=== PATIENT | male | born 1955 | race Caucasian/White ===

== ENCOUNTER 2020-09-17 10:54 | Outpatient (REF) | payer MEDICARE, SELFPAY ==
[2020-09-17 13:59] LABS: MANUAL DIFF FLAG NO
[2020-09-17 14:01] LABS: Basophils Percent Auto 0.2 % (0-2); Eosinophils Percent Auto 0.1 % (0-4); Hematocrit 46.4 % (42-52); Hemoglobin 15.3 g/dl (14.0-18.0); Imm Gran Abs Auto 0.04 X10*3/uL (0.00-0.03); Imm Gran Pct Auto 0.5 % (0.0-0.4); Lymphocytes Absolute Auto 0.8 X10*3/uL (1.2-4.9); Lymphocytes Percent Auto 10.1 % (20-40); Mean Corpuscular Hemoglobin 30.8 pg (27.0-33.0); Mean Corpuscular Volume 93.5 fL (80-98); Monocytes Absolute Auto 0.3 X10*3/uL (0.1-1.2); Monocytes Percent Auto 4.1 % (2-11); Neutrophils Absolute Auto 7.1 X10*3/uL (2.0-8.3); Platelet Count 302 X10*3/uL (160-400); Red Blood Count 4.96 X10*6/uL (4.60-5.80); White Blood Count 8.3 X10*3/uL (4.8-10.8)
[2020-09-17 14:36] LABS: Alanine Aminotransferase 23 U/L (0-40); Albumin Level 4.2 g/dL (3.5-5.0); Alkaline Phosphatase 73 U/L (39-117); Anion Gap 17 (12-20); Aspartate Amino Transferase 21 U/L (5-37); Blood Urea Nitrogen 13 mg/dL (9-16); C Reactive Protein 0.15 mg/dL (< or = 0.50); Calcium 9.4 mg/dL (8.4-10.2); Carbon Dioxide 20 mmol/L (22-29); Chloride 108 mmol/L (96-108); Estimated Glomerular Filt Rate > 60; Glucose Random 142 mg/dL (60-115); Potassium 4.4 mmol/L (3.3-5.1); Sodium 141 mmol/L (135-145); Total Protein 6.4 g/dL (6.5-8.0)
== END 2020-09-17 10:55 | disposition home or self-care (01) ==
LOC: HO.10HDL 10:54
PROVIDERS: Visit Provider Internal Medicine
DX: R42 Dizziness and giddiness (principal); R11.2 Nausea with vomiting, unspecified; K21.9 Gastro-esophageal reflux disease without esophagitis
CPT/HCPCS: 36415; 80053; 85025; 86140

== ENCOUNTER 2023-05-11 17:27 | Day surgery (SDC) | payer MEDICARE, SELFPAY ==
[2023-05-11 17:36] VITALS: BP 136/88; PULSE 102; RESP 20; TEMP 35.9; O2SAT 100; BMI 25.1
--- NOTE | 2023-05-11 17:39 | ED_ITS ---
HPI - General Adult General Chief complaint: General Medical Stated complaint: something stuck in throat Time Seen by Provider: 05/11/23 18:14 History of Present Illness HPI narrative: The patient is a 67-year-old male who says that he was eating steak this evening when he felt that something got stuck and he could no longer continue to eat. He could no longer swallow he felt. This was at around 5 PM. The patient says that he has had similar but less severe in the episodes in the past. He says he has never had an episode that has been so persistent and he has never had come to the emergency department before. He is not on anticoagulation for any reason. 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 Related Data Home Medications Medication Instructions Recorded Confirmed omeprazole 20 mg capsule,delayed 20 mg PO DAILY 05/11/23 05/11/23 release pentoxifylline 400 mg 400 mg PO BID 05/11/23 05/11/23 tablet,extended release pravastatin 20 mg tablet 20 mg PO DAILY 05/11/23 05/11/23 Allergies Allergy/AdvReac Type Severity Reaction Status Date / Time No Known Allergies Allergy Mild NOT Verified 05/11/23 17:42 APPLICABLE Review of Systems 2 Review of Systems: Yes all other systems are reviewed and are negative PMFSH Past Medical History Onset Date is defined in the Problem List Problems that require an onset date and time if occurred within 24 hrs of arrival to the ED Aortic Dissection and Rupture; Neurologic impairment; Cardiopulmonary Arrest; Endotracheal Intubation; Insertion or Replacement of Mechanical Circulatory Assist Device Medical History (Updated 05/11/23 @ 22:22 by Horace Sheffield MD) High cholesterol GERD (gastroesophageal reflux disease) Surgical History (Updated 05/11/23 @ 19:36 by Eddy Harden RN) Hx of brain surgery Social History Social History Smoked in Last 30 Days: No Use of substances other than those prescribed or required for medical reasons: No Advance Directives: No Advance Directives Information Provided: No Physical Exam ED Vital Signs: Vital Signs - 24 hr 05/11/23 17:36 05/11/23 20:01 05/11/23 20:06 Temperature 96.6 F L 97.2 F Pulse Rate 102 H 77 84 Respiratory Rate 20 15 14 Blood Pressure 136/88 138/79 133/93 H Pulse Oximetry 100 96 95 Oxygen Delivery Method Room Air Room Air Room Air 05/11/23 20:11 05/11/23 20:16 Temperature 98.2 F Pulse Rate 86 81 Respiratory Rate 16 14 Blood Pressure 143/92 H 129/89 Pulse Oximetry 96 96 Oxygen Delivery Method Room Air Room Air BMI result Body Mass Index 25.1 Const Other: The patient is a thin older man who was awake and alert. He looks somewhat chronically ill but not obviously acutely ill. HENMT Other: Oropharynx is clear. Mallampati I a. Eyes Other: Pupils are round equal, conjunctivae are clear Neck Other: No neck swelling. No JVD. Resp Other: No increased work of breathing. No respiratory embarrassment. Lungs are clear bilaterally. Cardio Other: The patient has regular rate and rhythm no murmur. GI Other: Abdomen is soft and nontender. Skin Other: Skin is pale and dry. Neuro Other: The patient is awake, alert, pleasant, cooperative. Face is symmetrical. Speech is clear. Moving all 4 extremities symmetrically. Grossly neurologically intact. Extrem Other: No peripheral edema Course Course Course Narrative: RME performed by Beatriz Meeks PA-C. Patient is a 67 year old assigned male at presenting to the emergency department with a piece of meat stuck in his throat. Patient is unable to drink. Detailed physical exam and review of systems are deferred to the lawn mower. Charge nurse made aware of the patient. Medications Administered Discontinued Medications Generic Name Dose Route Start Last Admin Trade Name Freq PRN Reason Stop Dose Admin Glucagon 1 mg 05/11/23 18:24 05/11/23 18:38 Glucagon Hcl 1 Mg Vial IVPUSH 05/11/23 18:25 1 mg ONCE ONE Administration Medical Decision Making Medical Decision Making [facility] Narrative: The patient is a 67-year-old male whose presentation is consistent with an esophageal food bolus impaction. He was given 1 mg of glucagon which did not seem to offer any benefit. I consulted Dr. Dye of Gastroenterology who took the patient to endoscopy for further management. The patient underwent endoscopy and according to the operative note a fluid bolus was easily pushed into the stomach. I believe the patient was subsequently discharged from the endoscopy recovery room. Lab Data 05/11/23 18:29 05/11/23 18:29 Labs: Lab Results 05/11/23 Range/Units 18:29 WBC 6.3 (4.8-10.8) X10*3/uL RBC 5.22 (4.60-5.80) X10*6/uL Hgb 15.8 (14.0-18.0) g/dl Hct 48.5 (42.0-52.0) % MCV 92.9 (80.0-98.0) fL MCH 30.3 (27.0-33.0) pg MCHC 32.6 (31.0-36.0) g/dl RDW 12.0 (11.0-16.0) % Plt Count 284 (160-400) X10*3/uL MPV 10.9 (9.4-12.4) fL Immature Gran % (Auto) 0.5 H (0.0-0.4) % Neut % (Auto) 71.5 (45-73) % Lymph % (Auto) 17.7 L (20-40) % [place] % (Auto) 7.3 (2-11) % Eos % (Auto) 2.2 (0-4) % Baso % (Auto) 0.8 (0-2) % Lymph # (Auto) 1.1 L (1.2-4.9) X10*3/uL [place] # (Auto) 0.5 (0.1-1.2) X10*3/uL Eos # (Auto) 0.1 (0.0-0.4) X10*3/uL Baso # (Auto) 0.1 (0.0-0.2) X10*3/uL Abs Immat Gran (auto) 0.03 (0.00-0.03) X10*3/uL Absolute Neuts (auto) 4.5 (2.0-8.3) x10*3/uL Absolute Nucleated RBC 0.000 (0.0-0.012) X10*3/uL Nucleated RBC % (auto) 0.0 (0.0-0.2) /100WBC Sodium 143 (135-145) mmol/L Potassium 4.2 (3.3-5.1) mmol/L Chloride 107 (96-108) mmol/L Carbon Dioxide 26 (22-29) mmol/L Anion Gap 14 (12-20) BUN 19 H (9-16) mg/dL Creatinine 1.27 (0.5-1.4) mg/dL Estim Creat Clear Calc 59.2 Estimated GFR 56 Random Glucose 103 (60-115) mg/dL Calcium 9.5 (8.4-10.2) mg/dL Discharge Plan Discharge Clinical Impression: Food impaction of esophagus Patient Disposition: Home, Self-Care Prescriptions: No Action omeprazole 20 mg capsule,delayed release(DR/EC) 20 mg PO DAILY pentoxifylline 400 mg tablet extended release 400 mg PO BID pravastatin 20 mg tablet 20 mg PO DAILY Patient Comments: pt states has not taken if over a week. Pt did not give a particular reason for non compliance Referrals: Odell Quinteros MD [Primary Care Provider] -
[2023-05-11] MEDS: glucagon HCL 1 MG VIAL IVPUSH (18:38)
[2023-05-11 18:41] LABS: MANUAL DIFF FLAG NO
[2023-05-11 18:44] LABS: Basophils Absolute Auto 0.1 X10*3/uL (0.0-0.2); Basophils Percent Auto 0.8 % (0-2); Eosinophils Absolute Auto 0.1 X10*3/uL (0.0-0.4); Eosinophils Percent Auto 2.2 % (0-4); Hematocrit 48.5 % (42.0-52.0); Hemoglobin 15.8 g/dl (14.0-18.0); Imm Gran Abs Auto 0.03 X10*3/uL (0.00-0.03); Imm Gran Pct Auto 0.5 % (0.0-0.4); Lymphocytes Absolute Auto 1.1 X10*3/uL (1.2-4.9); Lymphocytes Percent Auto 17.7 % (20-40); Mean Corpuscular HGB Conc 32.6 g/dl (31.0-36.0); Mean Corpuscular Hemoglobin 30.3 pg (27.0-33.0); Mean Corpuscular Volume 92.9 fL (80.0-98.0); Mean Platelet Volume 10.9 fL (9.4-12.4); Monocytes Absolute Auto 0.5 X10*3/uL (0.1-1.2); Monocytes Percent Auto 7.3 % (2-11); Neutrophils Absolute Auto 4.5 x10*3/uL (2.0-8.3); Neutrophils Percent Auto 71.5 % (45-73); Platelet Count 284 X10*3/uL (160-400); Red Blood Count 5.22 X10*6/uL (4.60-5.80); White Blood Count 6.3 X10*3/uL (4.8-10.8)
--- NOTE | 2023-05-11 18:45 | PC.NURSE ---
patient a&ox3, vss, pt speaking in full sentences, pt states he got a piece of ribeye steak stuck in his throat, IV inserted, labs drawn, pt medicated per order, at bedside, provider to consult GI, will continue to monitor
[2023-05-11 18:58] LABS: Anion Gap 14 (12-20); Blood Urea Nitrogen 19 mg/dL (9-16); Calcium 9.5 mg/dL (8.4-10.2); Carbon Dioxide 26 mmol/L (22-29); Chloride 107 mmol/L (96-108); Creatinine Clr Calc Pharmacy 59.2; Estimated Glomerular Filt Rate 56; Glucose Random 103 mg/dL (60-115); Potassium 4.2 mmol/L (3.3-5.1); Sodium 143 mmol/L (135-145)
--- NOTE | 2023-05-11 19:13 | PC.NURSE ---
Report given to OR
--- NOTE | 2023-05-11 19:15 | PM.EVENT ---
Event Note Date of Service: 05/11/23 Event Note: GI Consult-Full note dictated. History via patient and ER staff. Imp: Acute esophageal obstruction refractory to IV Glucagon. Rec: EGD this evening. Full consent obtained for this, including risks of bleeding and perforation. D/W patient and in detail. They are comfortable with this plan. Thanks. Time Spent With Patient Time: Total time managing care of this patient today ____ minutes.
--- NOTE | 2023-05-11 19:18 | PC.NURSE ---
Pt is undressed, in only a gown, as per request from OR.
--- NOTE | 2023-05-11 19:19 | MHC.SHP ---
Pre-Procedural Eval Section A Date of Service: 05/11/23 The patient is an INPATIENT: No The History & Physical has been completed within 30 days and I have reviewed it.: Yes Section B Chief Complaint: something stuck in throat Allergies: Allergies Allergy/AdvReac Type Severity Reaction Status Date / Time No Known Allergies Allergy Mild NOT Verified 05/11/23 17:42 APPLICABLE Plan I have reviewed the history and physical and performed a pertinent physical examination on my patient. No changes have occurred unless specified. Time Spent With Patient Time: Total time managing care of this patient today ____ minutes.
--- NOTE | 2023-05-11 19:20 | PM.EVENT ---
Event Note Date of Service: 05/17/23 Time Spent With Patient Time: Total time managing care of this patient today ____ minutes.
--- NOTE | 2023-05-11 19:29 | HO.ANESPROP2 ---
HPI - Anesthesia Eval Consult details Narrative: Food bolus [facility] Past Medical History Medical History (Updated 05/11/23 @ 19:38 by Eddy Harden RN) High cholesterol GERD (gastroesophageal reflux disease) Family History Family history of problems with anesthesia: No Surgical History Surgical History (Updated 05/11/23 @ 19:36 by Eddy Harden RN) Hx of brain surgery History of Problems with Anesthesia: No Social History Social History Smoked in Last 30 Days: No Use of substances other than those prescribed or required for medical reasons: No Advance Directives: No Advance Directives Information Provided: No Meds Allergies Allergy/AdvReac Type Severity Reaction Status Date / Time No Known Allergies Allergy Mild NOT Verified 05/11/23 17:42 APPLICABLE Home Medications Medication Instructions Recorded Confirmed Last Taken Type omeprazole 20 mg capsule,delayed 20 mg PO DAILY 05/11/23 05/11/23 05/11/23 History release pentoxifylline 400 mg 400 mg PO BID 05/11/23 05/11/23 05/11/23 History tablet,extended release pravastatin 20 mg tablet 20 mg PO DAILY 05/11/23 05/11/23 Unknown History Exam Height,Weight and Vital Signs: Height 5 ft 11 in Weight 81.647 kg Last Vital Signs Temp 96.6 F L 05/11/23 17:36 Pulse 102 H 05/11/23 17:36 Resp 20 05/11/23 17:36 BP 136/88 05/11/23 17:36 Pulse Ox 100 05/11/23 17:36 O2 Del Method Room Air 05/11/23 17:36 Pertinent Lab Results Pertinent Lab Results: Laboratory Tests 05/11/23 18:29 WBC 6.3 RBC 5.22 Hgb 15.8 Hct 48.5 MCV 92.9 MCH 30.3 MCHC 32.6 RDW 12.0 Plt Count 284 MPV 10.9 Immature Gran % (Auto) 0.5 H Neut % (Auto) 71.5 Lymph % (Auto) 17.7 L [place] % (Auto) 7.3 Eos % (Auto) 2.2 Baso % (Auto) 0.8 Lymph # (Auto) 1.1 L [place] # (Auto) 0.5 Eos # (Auto) 0.1 Baso # (Auto) 0.1 Abs Immat Gran (auto) 0.03 Absolute Neuts (auto) 4.5 Absolute Nucleated RBC 0.000 Nucleated RBC % (auto) 0.0 Sodium 143 Potassium 4.2 Chloride 107 Carbon Dioxide 26 Anion Gap 14 BUN 19 H Creatinine 1.27 Estim Creat Clear Calc 59.2 Estimated GFR 56 Random Glucose 103 Calcium 9.5 Airway Mallampati Class: II TM Dist: >3cm Neck ROM: Full Adult Head Mouth w/[place] Teeth: 1. Loose/Missing/Broken Teeth: Yes and Upper (B = Broken inciser) Heart: rrr Lungs: cta Assessment and Plan Assessment Anesthesia Assessment: Anesthesia Plan Discussed and Chart Reviewed Final Anesthetic Review Family History of Problems with Anesthesia: No History of Problems with Anesthesia: No NPO: No ASA Class: II and Emergency Final Preanesthetic Review: No Changes in Pt Med Stat, Meds/Allgs Chart Reviewed, Consent Obtained/Reviewed and Anes Risks/Benef Reviewed Patient Risk: Low Procedure Risk: Low Anesthetic Plan Anesthetic Plan: TIVA Disposition: Standard PACU
[2023-05-11 20:01] VITALS: BP 138/79; PULSE 77; RESP 15; TEMP 36.2; O2SAT 96
--- NOTE | 2023-05-11 20:05 | PM.EVENT ---
Event Note Date of Service: 05/17/23 Time Spent With Patient Time: Total time managing care of this patient today ____ minutes.
[2023-05-11 20:06] VITALS: BP 133/93; PULSE 84; RESP 14; O2SAT 95
--- NOTE | 2023-05-11 20:06 | P.BOP_ITS ---
Brief Operative Note Date of Service: 05/11/23 Pre-op diagnosis: Esophageal obstruction Post-op diagnosis: other (Esophageal food bolus) Procedure: Upper endoscopy with removal of esophageal food bolus Surgeon: Dennis Dye MD Anesthesia: MAC Was an Curriculum Specialist used for this Procedure?: No Estimated blood loss (mL): 0 Pathology: none sent Condition: stable Disposition: PACU
--- NOTE | 2023-05-11 20:07 | PM.EVENT ---
Event Note Date of Service: 05/11/23 Event Note: GI-Upper Endoscopy-Full note dictated Findings: 1. Food bolus in very proximal esophagus-pushed easily into stomach. EG Junction at 38cm WNL. 2. No abnormality in the proximal esophagus 3. Small hiatal hernia 4. Stomach and duodenum not inspected due to significant amount of food in stomach Plan. Continue oral PPI. Eat carefully. D/W patient and . Time Spent With Patient Time: Total time managing care of this patient today ____ minutes.
[2023-05-11 20:11] VITALS: BP 143/92; PULSE 86; RESP 16; O2SAT 96
[2023-05-11 20:16] VITALS: BP 129/89; PULSE 81; RESP 14; TEMP 36.8; O2SAT 96
--- NOTE | 2023-05-11 20:38 | OP_ITS ---
DATE OF SERVICE: 05/11/2023 SURGEON: Dennis Dye MD INDICATIONS: The patient presents for evaluation of acute dysphagia. Full consent has been obtained from the patient for this, including risks of bleeding and perforation. PREOPERATIVE DIAGNOSIS: Acute dysphagia. POSTOPERATIVE DIAGNOSIS: PROCEDURE PERFORMED: Upper endoscopy with removal of esophageal food bolus. ESTIMATED BLOOD LOSS: COMPLICATIONS: ANESTHESIA: Monitored anesthesia care. ASSISTANTS: SPECIMENS: POSTOPERATIVE DIAGNOSES: Acute dysphagia, esophageal food bolus, hiatal hernia. DESCRIPTION OF PROCEDURE: The patient was placed in the left lateral decubitus position. The Olympus video gastroscope was passed in the posterior oropharynx and upper esophagus under direct vision. Immediately upon entering the esophagus, there was a food bolus that was seen. This was then easily pushed into the stomach. The gastroesophageal junction appeared normal at 38 cm. There was a large amount of food in the stomach, and therefore, the stomach nor duodenum was inspected. The small hiatal hernia mucosa appeared normal. The gastroesophageal junction was widely patent and without any sign of esophagitis. There was no stricture. The scope was then withdrawn through the esophagus. I did not visualize any sign of residual food. The proximal esophagus was normal and without any sign of mucosal abnormality. The upper esophageal sphincter was easily passed as well. The scope was withdrawn from the patient. He tolerated the procedure well and was returned to the recovery area in stable condition. IMPRESSION: 1. Esophageal food bolus. 2. Hiatal hernia. PLAN: I suspect willy's episode was probably in relation to that of a too large of a piece of food. He also does not make much in the way of saliva due to his previous head and neck cancer, and this may have been playing a role in it as well. He has been instructed to eat carefully, cut up his food carefully, and to drink liquids with his meals. He will continue his omeprazole as he has been on for years in relation to reflux. If things remain stable, I do not think we would need any further intervention with repeat endoscopy nor GI series. However, if the problem develops again, then we may need to proceed with further studies including a GI series with a barium tablet and/or esophageal motility studies. This has been discussed with his . MD SHU SmithW/RUPINDERL / [id number] [facility]
--- NOTE | 2023-05-12 01:53 | CONS_ITS ---
DATE OF SERVICE: 05/11/2023 REASON FOR CONSULTATION: Acute dysphagia and esophageal obstruction. HISTORY OF PRESENT ILLNESS: The patient is a 67-year-old male who was in his usual state of health up until eating dinner this evening, which consisted of steak. Early in the meal, he developed an esophageal obstruction, in which he was unable to swallow any liquids nor any other food. He does describe that this has happened occasionally in the past, but usually within a couple of minutes he will be able to bring up the food and then continue eating. However, this evening he was unable to clear the obstruction and came to the ER. In the ER, he was given a dose of IV glucagon, but his dysphagia persists, and he has been unable to tolerate even water. He does have a history of a head and neck cancer for which he was treated with surgery and radiation treatments, and therefore does not make much saliva. He denies any chest pain nor trouble breathing. He does have a history of reflux for which he takes omeprazole, but again has not had any significant dysphagia in his past. He does describe that I performed an upper endoscopy on him over 5 years ago. MEDICATIONS: At home, omeprazole. PAST MEDICAL HISTORY: Left salivary gland cancer, treated with surgery and radiation treatments. Gastroesophageal reflux. He denies any history of heart disease, diabetes, stroke, nor lung disease. He has had eye surgery, laceration on his scalp as a child, and the above-mentioned head and neck cancer. SOCIAL HISTORY: He is . He does not smoke. He has a distant history of alcohol use but has not drank in over 20 years. FAMILY HISTORY: Noncontributory. REVIEW OF SYSTEMS: CONSTITUTIONAL: He had been feeling well and in his usual state of health up until this acute problem tonight. SKIN: Without rash nor jaundice. CARDIAC: No chest pain. PULMONARY: No cough or hemoptysis. GI: As above. URINARY: No dysuria, no hematuria. NEUROLOGIC: No headache or seizures. PHYSICAL EXAMINATION: GENERAL: The patient is a pleasant, alert, comfortable-appearing female. SKIN: Warm and dry. NECK: Supple without lymphadenopathy no crepitus. CHEST: Clear bilaterally. There is no chest wall crepitus. CARDIAC: Normal S1, S2. ABDOMEN: Soft, nondistended, nontender. EXTREMITIES: Without edema. IMPRESSION: The patient presents with acute esophageal obstruction that has been refractory to medical therapy. As such, he will undergo upper endoscopy this evening with monitored anesthesia care. Full consent has been obtained from the patient and his for this, including risks of bleeding and perforation. Given his clinical history, this may represent simply too large a food bolus to have swallowed adequately. Other possibilities, given his history of reflux, would be that of an underlying esophageal stricture or ring. Thank you for the consultation. MD ROBLES Smith/JAI / [id number] MTDD
--- NOTE | 2023-05-12 08:35 | MHC.CM.PN ---
Patient d/c'd home before being seen by case management.
== END 2023-05-11 20:20 | disposition home or self-care (01) ==
LOC: HO.ED 05-12 07:29 → HO.SSS 05-12 07:45
PROVIDERS: Emergency Provider Emergency Medicine; PCP Internal Medicine; Visit Provider Internal Medicine
PROC: 0DJ08ZZ Inspection of Upper Intestinal Tract, Via Natural or Artificial Opening Endoscopic (ICD-10-PCS; CPT 43235; principal; 2023-05-11 07:45)
DX: T18.120A Food in esophagus causing compression of trachea, initial encounter (principal); R13.10 Dysphagia, unspecified; W44.F3XA Food entering into or through a natural orifice, initial encounter; Y93.89 Activity, other specified; Y92.9 Unspecified place or not applicable; Y99.9 Unspecified external cause status; K11.7 Disturbances of salivary secretion; Z85.21 Personal history of malignant neoplasm of larynx; K44.9 Diaphragmatic hernia without obstruction or gangrene; K21.9 Gastro-esophageal reflux disease without esophagitis; E78.00 Pure hypercholesterolemia, unspecified; Z79.899 Other long term (current) drug therapy; Z87.820 Personal history of traumatic brain injury; Z98.890 Other specified postprocedural states
CPT/HCPCS: 43247; 36415; 80048; 85025; 96374; 99284; 99285; J1610; J2704; J3010; Q9967

== ENCOUNTER 2023-10-16 08:05 | Day surgery (SDC) | payer MEDICARE, SELFPAY ==
[2023-10-13 15:09] VITALS: BMI 22.8
--- NOTE | 2023-10-14 11:59 | HO.ANESPROP2 ---
Documented by User: Gracie Camacho NP 10/14/23 12:01 HPI - Anesthesia Eval Consult details Narrative: 68yo M for Upper Endoscopy and Colonoscopy s/p food bolus EGD 05/2023 with TIVA PMFSH Active Problems Active Problems: All Active Problems Food impaction of esophagus (Acute) Past Medical History Medical History (Updated 10/13/23 @ 15:12 by Esther Perez, GALEN) Squamous cell carcinoma of tonsil Barretts esophagus High cholesterol GERD (gastroesophageal reflux disease) Family History Family history of problems with anesthesia: No Surgical History Surgical History (Updated 10/16/23 @ 08:14 by Lore Delgado RN) Hx of eye surgery Hx of tonsillectomy History of esophagogastroduodenoscopy (EGD) H/O colonoscopy Hx of brain surgery History of Problems with Anesthesia: No Social History Social History (Updated 10/13/23 @ 15:12 by Esther Perez RN) Household Members: Spouse Patient Tobacco Use Status: Never used Tobacco Use of substances other than those prescribed or required for medical reasons: No Are you DNR?: No Advance Directives: No Advance Directives Information Provided: Yes Meds Allergies Allergy/AdvReac Type Severity Reaction Status Date / Time No Known Allergies Allergy Mild NOT Verified 05/11/23 17:42 APPLICABLE Home Medications ?Medication ?Instructions ?Recorded ?Confirmed ?Last Taken ?Type omeprazole 20 mg capsule,delayed 20 mg PO DAILY 05/11/23 10/13/23 10/16/23 History release pravastatin 20 mg tablet 20 mg PO DAILY 05/11/23 10/13/23 Unknown History Exam Height,Weight and Vital Signs: Height 5 ft 11.5 in Weight 75.296 kg Pertinent Lab Results Pertinent Lab Results: Laboratory Tests 05/11/23 18:29 WBC 6.3 Hgb 15.8 Hct 48.5 Plt Count 284 Sodium 143 Potassium 4.2 Chloride 107 Carbon Dioxide 26 BUN 19 H Creatinine 1.27 Assessment and Plan Assessment Anesthesia Assessment: Chart Reviewed Final Anesthetic Review Family History of Problems with Anesthesia: No History of Problems with Anesthesia: No Documented by User: Portia Alexis MD 10/16/23 09:05 PMFSH Past Medical History Medical History (Updated 10/13/23 @ 15:12 by Esther Perez, GALEN) Squamous cell carcinoma of tonsil Barretts esophagus High cholesterol GERD (gastroesophageal reflux disease) Surgical History Surgical History (Updated 10/16/23 @ 08:14 by Lore Delgado RN) Hx of eye surgery Hx of tonsillectomy History of esophagogastroduodenoscopy (EGD) H/O colonoscopy Hx of brain surgery Social History Social History (Updated 10/13/23 @ 15:12 by Esther Perez RN) Household Members: Spouse Patient Tobacco Use Status: Never used Tobacco Use of substances other than those prescribed or required for medical reasons: No Are you DNR?: No Advance Directives: No Advance Directives Information Provided: Yes Meds Allergies Allergy/AdvReac Type Severity Reaction Status Date / Time No Known Allergies Allergy Mild NOT Verified 05/11/23 17:42 APPLICABLE Home Medications ?Medication ?Instructions ?Recorded ?Confirmed ?Last Taken ?Type omeprazole 20 mg capsule,delayed 20 mg PO DAILY 05/11/23 10/13/23 10/16/23 History release pravastatin 20 mg tablet 20 mg PO DAILY 05/11/23 10/13/23 Unknown History Exam Airway Mallampati Class: III TM Dist: >3cm Neck ROM: Full Assessment and Plan Assessment Anesthesia Assessment: Anesthesia Plan Discussed Final Anesthetic Review NPO: Yes ASA Class: II Final Preanesthetic Review: No Changes in Pt Med Stat, Meds/Allgs Chart Reviewed, Consent Obtained/Reviewed and Anes Risks/Benef Reviewed Patient Risk: Low Procedure Risk: Low Anesthetic Plan Anesthetic Plan: TIVA Disposition: Standard PACU
[2023-10-16 08:17] VITALS: BMI 22.5
[2023-10-16 08:20] VITALS: BP 137/93; PULSE 82; RESP 16; TEMP 36.5; O2SAT 96
[2023-10-16] MEDS: Lactated Ringers 1,000 ML 100 ML IVCONT (08:29)
[2023-10-16 09:46] VITALS: BP 92/57; PULSE 80; RESP 16; TEMP 36.2; O2SAT 97
--- NOTE | 2023-10-16 09:49 | PM.OP ---
Brief Operative Note Date of Service: 10/16/23 Pre-op diagnosis: Luong's, Screening Post-op diagnosis: other (Hiatal hernia, Diverticulosis) Procedure: EGD with biopsies, Colonoscopy to the cecum and TI Surgeon: Dennis Dye MD Anesthesia: MAC Was an Attendant Coin Operated Laundry used for this Procedure?: No Estimated blood loss (mL): 2.0 Pathology: other (A. EG Junction at 39cm) Condition: stable Disposition: PACU
[2023-10-16 10:01] VITALS: BP 110/68; PULSE 87; RESP 16; O2SAT 97
[2023-10-16 10:16] VITALS: BP 118/69; PULSE 80; RESP 16; TEMP 36.2; O2SAT 97
--- NOTE | 2023-10-16 10:19 | OP_ITS ---
DATE OF SERVICE: 10/16/2023 SURGEON: Dennis Dye MD INDICATIONS: The patient presents for evaluation of personal history of tubular adenoma of the colon, family history of colon cancer, need for colorectal cancer screening, gastroesophageal reflux, and Luong esophagus. Full consent has been obtained from him for both procedures, including risks of bleeding and perforation. PREOPERATIVE DIAGNOSIS: POSTOPERATIVE DIAGNOSIS: PROCEDURE PERFORMED: Esophagogastroduodenoscopy with biopsies, and colonoscopy to the cecum and terminal ileum. ESTIMATED BLOOD LOSS: COMPLICATIONS: ANESTHESIA: Monitored anesthesia care. ASSISTANTS: SPECIMENS: PREOPERATIVE DIAGNOSES: Gastroesophageal reflux, history of Luong esophagus, family history of colon cancer, personal history of tubular adenoma, colorectal cancer screening. POSTOPERATIVE DIAGNOSES: Gastroesophageal reflux, history of Ulong esophagus, family history of colon cancer, personal history of tubular adenoma, colorectal cancer screening, hiatal hernia, gastric polyps, diverticulosis, internal hemorrhoids. DESCRIPTION OF PROCEDURE: The patient was placed in the left lateral decubitus position. The Olympus video gastroscope was passed in the posterior oropharynx and upper esophagus under direct vision. The scope was passed slowly into the distal esophagus. The gastroesophageal junction appeared at 39 cm. There was some very slight areas of irregularity, but no erosions, ulceration, nor lesions. The scope entered the stomach. There was a small hiatal hernia. The scope was advanced to pylorus and the duodenum was cannulated to the descending portion. The duodenum including the bulb appeared normal without mass or ulceration. The scope was withdrawn back in the stomach. The gastric antrum and body appeared normal with good peristalsis. The scope was retroflexed, visualizing the proximal stomach carefully, which appeared normal, without mass or ulceration, other than some hyperplastic-appearing gastric polyps. The scope was straightened and withdrawn back to the esophagus. Multiple biopsies were obtained at the EG junction at 39 cm. Proximal to this, the esophageal mucosa appeared normal. The scope was withdrawn from the patient. He was turned around for the colonoscopy. The digital rectal exam revealed no abnormalities. The Olympus video pediatric colonoscope was then entered into the rectum and advanced easily to the cecum. Once in the cecum, I did identify normal-appearing cecal pouch with appendiceal orifice and a normal-appearing ileocecal valve. The terminal ileum was cannulated and appeared normal. The scope was withdrawn back in the colon. The entire cecum and ileocecal valve appeared normal. The scope was slowly withdrawn assessing all mucosal surfaces carefully. Preparation was excellent. I did not visualize any sign of polyps, colitis, or angiodysplasias. There was a mild amount of sigmoid diverticulosis. In the rectum, scope was retroflexed, visualizing internal hemorrhoids, but no other pathology. The rectal mucosa appeared normal. The scope was straightened and withdrawn from the patient. He tolerated the procedures well and was returned to the recovery area in stable condition. IMPRESSION: 1. Hiatal hernia, history of Luong esophagus. 2. Gastric polyps. 3. Diverticulosis. 4. Internal hemorrhoids. PLAN: The results of the biopsies will be checked. Assuming there is no dysplasia within the Luong mucosa, I would recommend a repeat upper endoscopy and colonoscopy in 5 years. He will continue his daily omeprazole. He will, otherwise, see me on a p.r.n. basis. MD ROBLES Smith/JAI / [phone]
== END 2023-10-16 10:40 | disposition home or self-care (01) ==
PROVIDERS: PCP Internal Medicine; Visit Provider Internal Medicine
PROC: (CPT 43239; principal; 2023-10-16 09:30)
DX: Z12.11 Encounter for screening for malignant neoplasm of colon (principal); K57.30 Diverticulosis of large intestine without perforation or abscess without bleeding; K64.8 Other hemorrhoids; Z86.010 Personal history of colon polyps; Z80.0 Family history of malignant neoplasm of digestive organs; K21.9 Gastro-esophageal reflux disease without esophagitis; K31.7 Polyp of stomach and duodenum; K44.9 Diaphragmatic hernia without obstruction or gangrene; Z87.19 Personal history of other diseases of the digestive system; Z79.899 Other long term (current) drug therapy
CPT/HCPCS: 43239; G0105; 88305; 88313; J1596; J2704

== ENCOUNTER 2024-09-21 09:02 | Outpatient (AMB) | payer MEDICARE, SELFPAY ==
--- NOTE | 2024-09-13 15:19 | MHC.PC.OV ---
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 Accompanied by: Self / Same As Patient Allergies No Known Allergies Allergy (Mild, Verified 09/13/24 15:20) NOT APPLICABLE Tobacco use date assessed: 09/14/24 Fall risk assessment: No Falls in past year Last assessed Fall Risk: 09/14/24 Dental Screening Dental Screen Date: 09/13/24 Did you have a dental visit in the last 12 months?: Yes Did you have a dental problem in the last 6 months where you did not have access to dental care?: No PFSH Medical History Squamous cell carcinoma of tonsil Barretts esophagus High cholesterol GERD (gastroesophageal reflux disease) Surgical History Hx of eye surgery Hx of tonsillectomy History of esophagogastroduodenoscopy (EGD) H/O colonoscopy Hx of brain surgery Social History Household Members: Spouse Patient Tobacco Use Status: Never used Tobacco Questionnaire PHQ-9 Over the last 2 weeks, how often have you been bothered by any of the following problems? 1. Little interest or pleasure in doing things: not at all 2. Feeling down, depressed, or hopeless: not at all 3. Trouble falling or staying asleep, or sleeping too much: not at all 4. Feeling tired or having little energy: not at all 5. Poor appetite or overeating: not at all 6. Feeling bad about yourself - or that you are a failure or have let yourself or your family down: not at all 7. Trouble concentrating on things, such as reading the newspaper or watching television: not at all 8. Moving or speaking so slowly that other people could have noticed. Or the opposite - being so fidgety or restless that you have been moving around a lot more than usual: not at all 9. Thoughts that you would be better off or of hurting yourself in some way: not at all Total score: 0 Source: Developed by Drs. Dennis Jonas, Lisette Jones, Ion Barroso and colleagues, with an educational savi from [employer]. Thrive Questionnaire Date Thrive assessed: 09/14/24 I am a: Patient Within the past 12 months, did the food you bought not last and you didn't have the money to get more?: Never true Within the past 12 months, did you worry whether your food would run out before you got money to buy more?: Never true Do you have trouble paying for medicines?: No Do you have trouble getting transportation to medical appointments?: No Do you have trouble paying your heating and electricity bill?: No Do you have trouble taking care of your child, family member or friend?: No Do you have trouble with day-to-day activities such as bathing, preparing meals, shopping, managing finances, etc.?: No Are you currently unemployed and looking for a job?: No Are you interested in more education?: No THRIVE Score: 0 AUDIT C Alcohol Use Questionnaire (AUDIT-C) 1. How often do you have a drink containing alcohol?: Never 3. How often do you have six or more drinks on one occasion?: Never Total Score: 0 DAYLIN-7 AMB Questionnaire DAYLIN-7 Date DAYLIN - 7 assessed: 09/14/24 Feeling nervous, anxious, or on edge: 0 = Not at all Not being able to stop or control worryin = Not at all Worrying too much about different things: 0 = Not at all Trouble relaxin = Not at all Being so restless that it is hard to sit still: 0 = Not at all Becoming easily annoyed or irritable: 0 = Not at all Feeling afraid as if something awful might happen: 0 = Not at all Total DAYLIN-7 score (0-4 normal; 5-9 mild; 10-14 moderate; 15-21 severe): 0 Source: Developed by Drs. Dennis Jonas, Lisette Jones, Ion Barroso and colleagues, with an educational savi from [employer]. Physical exam (Primary Care) Tobacco/Smoking Status: Tobacco use Status Patient Tobacco Use Status Never used Tobacco 10/16/23 09:49 Coding
--- NOTE | 2024-09-21 07:48 | MHC.PC.OV ---
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 Accompanied by: Self / Same As Patient Allergies No Known Allergies Allergy (Mild, Verified 09/21/24 09:29) NOT APPLICABLE Medication List - Last Reconciled 09/21/24 by Ignacio Burnett MD omeprazole 20 mg PO DAILY pravastatin 20 mg PO DAILY Tobacco use date assessed: 09/21/24 Fall risk assessment: 2 + Falls in past year Last assessed Fall Risk: 09/21/24 Dental Screening Dental Screen Date: 09/21/24 Did you have a dental visit in the last 12 months?: Yes Did you have a dental problem in the last 6 months where you did not have access to dental care?: No PFSH Medical History Squamous cell carcinoma of tonsil Barretts esophagus High cholesterol GERD (gastroesophageal reflux disease) Surgical History Hx of eye surgery Hx of tonsillectomy History of esophagogastroduodenoscopy (EGD) H/O colonoscopy (~10/16/23) Hx of brain surgery Family History Mother No problems noted. Father No problems noted. Social History Household Members: Spouse Housing: House Patient Tobacco Use Status: Never used Tobacco e-Cigarette/Vaping Use: Never Used service: No Current occupational status: employed and retired Current occupational exposures/hazards: No Cognitive needs: No Hearing needs: No Vision needs: Yes (rx glasses) Female Reproductive History Date of last Bone Density Screenin09/21/24 Questionnaire PHQ-9 Over the last 2 weeks, how often have you been bothered by any of the following problems? 1. Little interest or pleasure in doing things: not at all 2. Feeling down, depressed, or hopeless: not at all 3. Trouble falling or staying asleep, or sleeping too much: not at all 4. Feeling tired or having little energy: not at all 5. Poor appetite or overeating: not at all 6. Feeling bad about yourself - or that you are a failure or have let yourself or your family down: not at all 7. Trouble concentrating on things, such as reading the newspaper or watching television: not at all 8. Moving or speaking so slowly that other people could have noticed. Or the opposite - being so fidgety or restless that you have been moving around a lot more than usual: not at all 9. Thoughts that you would be better off or of hurting yourself in some way: not at all Total score: 0 Depression Screening Interpretation: Negative Depression Screening Done: Yes Source: Developed by Drs. Dennis Jonas, Lisette Jones, Ion Barroso and colleagues, with an educational savi from [employer]. Thrive Questionnaire Date Thrive assessed: 09/21/24 I am a: Patient Within the past 12 months, did the food you bought not last and you didn't have the money to get more?: Never true Within the past 12 months, did you worry whether your food would run out before you got money to buy more?: Never true Do you have trouble paying for medicines?: No Do you have trouble getting transportation to medical appointments?: No Do you have trouble paying your heating and electricity bill?: No Do you have trouble taking care of your child, family member or friend?: No Do you have trouble with day-to-day activities such as bathing, preparing meals, shopping, managing finances, etc.?: No Are you currently unemployed and looking for a job?: No Are you interested in more education?: No Currently or been in a relationship where the following occur: No concerns reported THRIVE Score: 0 AUDIT C Alcohol Use Questionnaire (AUDIT-C) 1. How often do you have a drink containing alcohol?: Never 3. How often do you have six or more drinks on one occasion?: Never Total Score: 0 DAYLIN-7 AMB Questionnaire DAYLIN-7 Date DAYLIN - 7 assessed: 09/21/24 Feeling nervous, anxious, or on edge: 0 = Not at all Not being able to stop or control worryin = Not at all Worrying too much about different things: 0 = Not at all Trouble relaxin = Not at all Being so restless that it is hard to sit still: 0 = Not at all Becoming easily annoyed or irritable: 0 = Not at all Feeling afraid as if something awful might happen: 0 = Not at all Total DAYLIN-7 score (0-4 normal; 5-9 mild; 10-14 moderate; 15-21 severe): 0 Source: Developed by Drs. Dennis Jonas, Lisette Jones, Ion Barroso and colleagues, with an educational savi from [employer]. Physical exam (Primary Care) Vital Signs: Last Vital Signs Temp 98.1 F 09/21/24 09:15 Pulse 80 09/21/24 09:15 BP 122/80 09/21/24 09:15 Pulse Ox 98 09/21/24 09:15 Oxygen Delivery Method Room Air 09/21/24 09:15 Care Plan Goal for BP management: BP is in range BMI result Body Mass Index 24.0 Tobacco/Smoking Status: Tobacco use Status Tobacco use date assessed 09/21/24 09/21/24 07:50 Patient Tobacco Use Status Never used Tobacco 09/21/24 07:50 e-Cigarette/Vaping Use Never Used 09/21/24 07:50 PHQ-9: PHQ-9 Score PHQ-9: Total score 0 09/21/24 09:19 Depression Screening Interpretation: Negative Thrive Assessment: Date of Thrive Assessment Date Thrive assessed 09/21/24 09/21/24 09:10 Currently or been in a relationship where the following occur: No concerns reported Advance Care Planning discussion: Exists, not on file Date of discussion: 09/21/24 Who was present: Patient Forms completed: Health Care Proxy Time spent: 1-15 minutes, not on file Actual minutes spent: 5 Coding Level of Care Code New Pt Level 4 (15362) Complex EM visit Add On G2211 Diagnoses High cholesterol E78.00 Squamous cell carcinoma of tonsil C09.9 Additional Codes Vital Signs *Quality* - Advance Care Planning discussion: Exists, not on file ([id number]) Vital Signs *Quality* - Time spent: 1-15 minutes, not on file ([id number]) Assessment & Plan Assessment & Plan (1) High cholesterol: Code(s): E78.00 - Pure hypercholesterolemia, unspecified Category: Medical Plan: Fasting lipid panel ordered. Will adjust medication accordingly. 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 Plan History of Present Illness The patient is a 69-year-old male presenting for a medication refill and fasting blood work. He is currently managing hypercholesterolemia, which has necessitated the use of cholesterol-lowering medication. His usual pharmacy contacted him about a problem with the refill, potentially linked to an update in his healthcare provider. In addition, the patient's history includes the removal of squamous cell carcinoma. He had undergone surgical excision, and it has been a decade since any follow-up with an oncologist. Post-surgery effects include a persistent drift on his lower lip, attributed to nerve impact during the procedure. The patient denied any recurrence or new symptoms related to his past oncology issues. Social History - Retired, previously worked in [employer] for the [employer] - Never smoked - Previously consumed alcohol heavily in youth - Enjoys playing golf as a current hobby - and drives, both in the day and night - Discussed having arrangements for a living will or healthcare proxy Review of Systems - Constitutional: Denies weight changes, fatigue - Dermatological: Denies new skin lesions - Cardiovascular: Reports stable cardiovascular status - Gastrointestinal: Reports previous history of omeprazole use - Musculoskeletal: Denies joint pain, swelling - Neurological: Reports surgical effects on lower lip with drift due to nerve involvement Physical Exam General: Cooperative and healthy appearing Nutritional Appearance: Well nourished Orientation/consciousness: Patient oriented x3 Limitations: No limitations Head: Normal to inspection General: Appearance normal, both eyes and all related structures Neck: Normal visual inspection Chest: Normal palpation of entire chest wall Respiratory: N ormal respiratory effort Neurology: Patient oriented x3, residual drift on lower lip due to nerve damage from surgery Results - Labs: Pending fasting blood work Plan 1. Hypercholesterolemia - Cholesterol medication refill will be processed. - Complete fasting blood work today. - Follow-up scheduled for six months. 2. History Of Squamous Cell Carcinoma - No current concerns; monitoring only. - No evidence of recurrence, remains stable. Discussion Notes During our visit, we discussed the patient's need for a medication refill and blood work for managing his hypercholesterolemia. I explained the importance of maintaining consistent medication use to control his cholesterol levels and the necessity of regular monitoring through blood tests. I confirmed the plan to communicate with [facility] regarding his prescription refill issue, ensuring the process is streamlined due to the recent provider transition. We also reviewed his past history of squamous cell carcinoma, for which he has not seen an oncologist in ten years, indicating a stable condition. The residual effects on his lower lip post-surgery were noted, and his non-recurrent status provided reassurance that no immediate follow-up with oncology was necessary. We agreed on follow-up in six months to reassess and monitor his health status. Patient Instructions - Proceed to complete fasting blood work today, despite having consumed a banana. 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 - Follow up with a healthcare provider in six months for reassessment. - Maintain current lifestyle and report any new health changes or concerns. Orders: Orders Basic Metabolic Panel Today C09.9 - Malignant neoplasm of tonsil, unspecified, E78.00 - Pure hypercholesterolemia, unspecified Complete Blood Count no Diff Today C09.9 - Malignant neoplasm of tonsil, unspecified, E78.00 - Pure hypercholesterolemia, unspecified Liver Panel Today C09.9 - Malignant neoplasm of tonsil, unspecified, E78.00 - Pure hypercholesterolemia, unspecified Lipid Panel Today C09.9 - Malignant neoplasm of tonsil, unspecified, E78.00 - Pure hypercholesterolemia, unspecified Thyroid Stimulating Hormone Today C09.9 - Malignant neoplasm of tonsil, unspecified, E78.00 - Pure hypercholesterolemia, unspecified UA and rflx microscopic Today C09.9 - Malignant neoplasm of tonsil, unspecified, E78.00 - Pure hypercholesterolemia, unspecified Medications: New omeprazole 20 mg PO DAILY 90 caps 1RF pravastatin 20 mg PO DAILY 90 tabs 1RF
[2024-09-21 09:15] VITALS: BP 122/80; PULSE 80; TEMP 36.7; O2SAT 98; BMI 24.0
--- OUTSIDE RECORDS SUMMARY | 2024-09-21 10:17 | XMS_ITS ---
Author Organization [facility] Address [address] [place] [id number] Care Team Providers Care Overlock Sleeve Setter Name Role Phone Odell Quinteros MD Primary Care Provider Dennis Segovia Unavailable [phone] Allergies No Known Allergies REASON FOR VISIT Patient presents today for a colon screening Medications Medication SIG (Take, Route, Frequency, Duration) Notes Start Date End Date Status Omeprazole 20 MG 1 capsule Orally Once a day 07/18 Active Pravastatin Sodium 20 MG 1 tablet Orally Once a day 07/18/2014 Active Problems Problem Type SNOMED Code ICD Code Onset Dates Problem Status W/U Status Risk Notes Problem History of adenomatous polyp of colon (429719300) History of adenomatous polyp of colon (Z86.010) Active confirmed Vital Signs Temperature 98.4 degrees Fahrenheit 09/11/19 24 Blood pressure systolic 000 mm Hg 09/11/19 24 Blood pressure diastolic 00 mm Hg 024 Height 71.5 in 09/11/2023 Weight 166 lbs 09/11/2023 BMI 22.83 kg/m2 09/11/2023 Encounters Encounter Location Date Provider Diagnosis [facility] [address] [place] [id number] 09/11/2023 Dennis Dye Gastroesophageal ref lux disease without esophagitis K21.9 ; Barretts esophagus without dysplasia K22.70 ; Encounter for screening for malignant neoplasm of colon Z12.11 ; Family history of colon cancer Z80.0 and History of adenomatous polyp of colon Z86.010 Assessments Encounter Date Diagnosis (ICD Code) Assessment Notes Treatment Notes Treatment Clinical Notes Section Notes 09/11/2023 Gastroesophageal reflux disease without esophagitis (ICD-10 - K21.9) Overall, Jatinder appears to be doing well. We did review his recent esophageal obstruction and subsequent endoscopy. I did advise him to continue to eat carefully, cut up his food carefully, and be sure to drink plenty of fluids with his meals to make up for his lack of saliva I don't think he repeat upper endoscopy is required in regard to the previous esophageal obstruction given his clinical history and his current clinical course and not having any further problems. However, I did recommend a followup upper endoscopy in regard to the previous history of Luong's esophagus and his last upper endoscopy with biopsies being over 5 years ago. I also recommended a followup colonoscopy for further screening purposes given the history of tubular adenomas removed just over 5 years ago. He did review the rationale for that in regard to colon cancer prevention and/or early detection. Full consent was obtained from him for both procedures, including risks of bleeding and perforation. Procedures will be done monitored anesthesia care Jatinder was comfortable with this plan. Thank you again for allowing me to participate in Jatinder's care. I shall continue to keep you advised of his progress. 09/11/2023 Barretts esophagus without dysplasia (ICD-10 - K22.70) Overall, Jatinder appears to be doing well. We did review his recent esophageal obstruction and subsequent endoscopy. I did advise him to continue to eat carefully, cut up his food carefully, and be sure to drink plenty of fluids with his meals to make up for his lack of saliva I don't think he repeat upper endoscopy is required in regard to the previous esophageal obstruction given his clinical history and his current clinical course and not having any further problems. However, I did recommend a followup upper endoscopy in regard to the previous history of Luong's esophagus and his last upper endoscopy with biopsies being over 5 years ago. I also recommended a followup colonoscopy for further screening purposes given the history of tubular adenomas removed just over 5 years ago. He did review the rationale for that in regard to colon cancer prevention and/or early detection. Full consent was obtained from him for both procedures, including risks of bleeding and perforation. Procedures will be done monitored anesthesia care Jatinder was comfortable with this plan. Thank you again for allowing me to participate in Jatinder's care. I shall continue to keep you advised of his progress. 09/11/2023 Encounter for screening for malignant neoplasm of colon (ICD-10 - Z12.11) Overall, Jatinder appears to be doing well. We did review his recent esophageal obstruction and subsequent endoscopy. I did advise him to continue to eat carefully, cut up his food carefully, and be sure to drink plenty of fluids with his meals to make up for his lack of saliva I don't think he repeat upper endoscopy is required in regard to the previous esophageal obstruction given his clinical history and his current clinical course and not having any further problems. However, I did recommend a followup upper endoscopy in regard to the previous history of Luong's esophagus and his last upper endoscopy with biopsies being over 5 years ago. I also recommended a followup colonoscopy for further screening purposes given the history of tubular adenomas removed just over 5 years ago. He did review the rationale for that in regard to colon cancer prevention and/or early detection. Full consent was obtained from him for both procedures, including risks of bleeding and perforation. Procedures will be done monitored anesthesia care Jatinder was comfortable with this plan. Thank you again for allowing me to participate in Jatinder's care. I shall continue to keep you advised of his progress. 09/11/2023 Family history of colon cancer (ICD-10 - Z80.0) Overall, Jatinder appears to be doing well. We did review his recent esophageal obstruction and subsequent endoscopy. I did advise him to continue to eat carefully, cut up his food carefully, and be sure to drink plenty of fluids with his meals to make up for his lack of saliva I don't think he repeat upper endoscopy is required in regard to the previous esophageal obstruction given his clinical history and his current clinical course and not having any further problems. However, I did recommend a followup upper endoscopy in regard to the previous history of Luong's esophagus and his last upper endoscopy with biopsies being over 5 years ago. I also recommended a followup colonoscopy for further screening purposes given the history of tubular adenomas removed just over 5 years ago. He did review the rationale for that in regard to colon cancer prevention and/or early detection. Full consent was obtained from him for both procedures, including risks of bleeding and perforation. Procedures will be done monitored anesthesia care Jatinder was comfortable with this plan. Thank you again for allowing me to participate in Jatinder's care. I shall continue to keep you advised of his progress. 09/11/2023 History of adenomatous polyp of colon (ICD-10 - Z86.010) Overall, Jatinder appears to be doing well. We did review his recent esophageal obstruction and subsequent endoscopy. I did advise him to continue to eat carefully, cut up his food carefully, and be sure to drink plenty of fluids with his meals to make up for his lack of saliva I don't think he repeat upper endoscopy is required in regard to the previous esophageal obstruction given his clinical history and his current clinical course and not having any further problems. However, I did recommend a followup upper endoscopy in regard to the previous history of Luong's esophagus and his last upper endoscopy with biopsies being over 5 years ago. I also recommended a followup colonoscopy for further screening purposes given the history of tubular adenomas removed just over 5 years ago. He did review the rationale for that in regard to colon cancer prevention and/or early detection. Full consent was obtained from him for both procedures, including risks of bleeding and perforation. Procedures will be done monitored anesthesia care Jatinder was comfortable with this plan. Thank you again for allowing me to participate in Jatinder's care. I shall continue to keep you advised of his progress. Plan Of Treatment Medication Medication Name Sig Start Date Stop Date Notes Omeprazole 20 MG 1 capsule Orally Once a day 07/18/2014 Future Test Test Name Order Date UPPER GI ENDOSCOPY 09/11/2023 COLONOSCOPY 09/11/2023 Next Appt Details Follow Up: prn, Reason: Progress Notes * JATINDER RODRIGUEZ FDOB:1955 (68 yo M)Acc No.[id number]:09/11/2023 Progress Notes Patient:?JATINDER RODRIGUEZ Provider:?Dennis Dye MD :1955???Age:68 Y???Sex:Male Kun e:09/11/2023 Address: [address], [facility] Pcp:Odell Quinteros MD Subjective: * Chief Complaints: * ???Patient presents today fo r a colon screening * HPI: ???incontinence:? I saw Jatinder in followup today in regard to his history of chronic gastroesophageal associated Luong's esophagus, personal history of tubular adenomas of the colon and need for colorectal cancer screening, and recent esophageal obstruction. ?I last saw Jatinder in May, at which time he was in the ER with esophageal obstruction from a piece of meat. He underwent upper endoscopy with me with removal of that. There was no evidence of any intrinsic esophageal disease such as a stricture, ring, nor esophagitis. At that time I felt this was in relation to a too large a piece of food coupled with his lack of any saliva from his previous head and neck cancer treatments. Since that happened to him he has been doing well and without any further episodes. He is trying to be more conscious of Eating slowly, cutting up his food, and drinking liquids with his meals. ?He does remain on daily omeprazole with good relief of reflux symptoms. His last upper endoscopy in 2019 did not reveal any esophagitis or Luong's esophagus, although previous endoscopies with biopsies have revealed some Luong's mucosa. He denies any significant heartburn, dysphagia, anorexia, nausea, nor vomiting. ?He denies any abdominal pain, jaundice, nor weight loss. ?His bowel movements have been regular and without any signs of bleeding. His colonoscopy in 2019 revealed 2 tubular adenomas that were removed. He thinks his father probably had colon cancer. * ROS:?General/Constitutional:?Change in appetite?denies.?Chills?denies.?Fatigue?denies.?Ophthalmologic:?Comments?all negative.?ENT:?Comments?all negative.?Respiratory:?hemoptysis?denies.?Cough?denies.?Cardiovascular:?Chest pain?denies.?Orthopnea?denies.?Gastrointestinal:?Comments?See HPI for details.?Genitourinary:?Hematuria?denies.?Dysuria?denies.?Musculoskeletal:?Painful joints?denies.?Weakness?denies.?Skin:?Itching?denies.?Rash?denies.?Neurologic:?Headache?denies.?Seizures?denies.?Psychiatric:?Comments?all negative.? * Medical History:? * Surgical History:?Neck cance r as above 2008Skull surgery due to trauma 1960Eye surgery as a child * Hospitalization/Major Diagno stic Procedure:?No Hospitalization History. * Family History:?Father: dece ased, dx in his late 60, diagnosed with Colon cancer.?Mother: .? No family history of liver cancer. * Social History:?Tobacco Use:?Tobacco Use/Smoking?Are you a: nonsmoker.?Drugs/Alcohol:?Alcohol Screen?Points: 0, Interpretation: Negative.?Miscellaneous:?Marital status: . Occupation: Golf pro in [place].. ???Nonsmoker; heavy EtOH until 1999--abstinent since. * Medications:?TakingPravastat in Sodium 20 MG Tablet 1 tablet Orally Once a dayOmeprazole 20 MG Capsule Delayed Release 1 capsule Orally Once a dayMedication List reviewed and reconciled with the patientTaking Pravastatin Sodium 20 MG Tablet 1 tablet Orally Once a dayTaking Omeprazole 20 MG Capsule Delayed Release 1 capsule Orally Once a dayMedication List reviewed and reconciled with the patient * Allergies:?N.K.D.A.yes[Aller gies Verified] Objective: * Vitals:?Wt: 166 lbs, Ht: 71. 5 in, BMI:22.83 Index, BP: 000/00 mm Hg, Temp: 98.4. * Examination: ???General Examination: ?GENERAL APPEARANCE:?pleasant, well nourished, well developed, in no acute distress.?EYES:?sclera non-icteric.?ORAL CAVITY:?mucosa moist.?NECK/THYROID:?no cervical lymphadenopathy, neck supple.?SKIN:?nonjaundiced, no spider angiomata.?HEART:?S1, S2 normal.?LUNGS:?clear to auscultation bilaterally.?ABDOMEN:?normal bowel sounds, no guarding or rigidity, no guarding or rigidity, no masses palpable, soft, nontender, nondistended.?EXTREMITIES:?no edema.?NEUROLOGIC:?alert and oriented.? Assessment: * Assessment: 1.?Barretts esophagus withou t dysplasia - K22.70 (Primary)?2.?Gastroesophageal reflux disease without esophagitis - K21.9?3.?Encounter for screening for malignant neoplasm of colon - Z12.11?4.?Family history of colon cancer - Z80.0?5.?History of adenomatous polyp of colon - Z86.010? Overall, Jatinder appears to be doing well. We did review his recent esophageal obstruction and subsequent endoscopy. I did advise him to continue to eat carefully, cut up his food carefully, and be sure to drink plenty of fluids with his meals to make up for his lack of saliva I don't think he repeat upper endoscopy is required in regard to the previous esophageal obstruction given his clinical history and his current clinical course and not having any further problems. However, I did recommend a followup upper endoscopy in regard to the previous history of Luong's esophagus and his last upper endoscopy with biopsies being over 5 years ago. I also recommended a followup colonoscopy for further screening purposes given the history of tubular adenomas removed just over 5 years ago. He did review the rationale for that in regard to colon cancer prevention and/or early detection. Full consent was obtained from him for both procedures, including risks of bleeding and perforation. Procedures will be done monitored anesthesia care Jatinder was comfortable with this plan. Thank you again for allowing me to participate in Jatinder's care. I shall continue to keep you advised of his progress. Plan: * Treatment: 2.?Gastroesophageal reflux disease without esophagitis?Procedure: UPPER GI ENDOSCOPY (Ordered for 09/11/2023)* with MACsched for 10/16/23 at 11:30 am 3.?Encounter for screening for malignant neoplasm of colon?Procedure: COLONOSCOPY (Ordered for 09/11/2023)* with MACsched for 10/16/23 at 11:30 ammiralax 4.?Family history of colon cancer?Procedure: COLONOSCOPY (Ordered for 09/11/2023)* with MACsched for 10/16/23 at 11:30 ammiralax 5.?History of adenomatous polyp of colon?Procedure: COLONOSCOPY (Ordered for 09/11/2023)* with MACsched for 10/16/23 at 11:30 ammiralax 6.?Others? Continue Omeprazole Capsule Delayed Release, 20 MG, 1 capsule, Orally, Once a day.?? * Procedure Codes:?3017F COLOR ECTAL CA SCREEN DOC [id number] TOBACCO [id number] BP SCR NOT PRFRM REC REASON NOS * Follow Up:?prn * * Sign off status: Completed true * Provider:?Dennis Dye MD Date:? 024 Generated for Vaibhav christina/Kiran/Kris on:?09/21/2024 10:17 AM EDT History and Physical Notes * HPI (History of Present Illness) Category Sub-Category Detail Notes Category Not es incontinence I saw Jatinder in followup today in regard to his history of chronic gastroesophageal associated Luong's esophagus, personal history of tubular adenomas of the colon and need for colorectal cancer screening, and recent esophageal obstruction. I last saw Jatinder in May, at which time he was in the ER with esophageal obstruction from a piece of meat. He underwent upper endoscopy with me with removal of that. There was no evidence of any intrinsic esophageal disease such as a stricture, ring, nor esophagitis. At that time I felt this was in relation to a too large a piece of food coupled with his lack of any saliva from his previous head and neck cancer treatments. Since that happened to him he has been doing well and without any further episodes. He is trying to be more conscious of Eating slowly, cutting up his food, and drinking liquids with his meals. He does remain on daily omeprazole with good relief of reflux symptoms. His last upper endoscopy in 2019 did not reveal any esophagitis or Luong's esophagus, although previous endoscopies with biopsies have revealed some Luong's mucosa. He denies any significant heartburn, dysphagia, anorexia, nausea, nor vomiting. He denies any abdominal pain, jaundice, nor weight loss. His bowel movements have been regular and without any signs of bleeding. His colonoscopy in 2019 revealed 2 tubular adenomas that were removed. He thinks his father probably had colon cancer. Examination Category Sub-Category Detail Notes Category Not es General Examination GENERAL APPEARANCE: pleasant , well nourished, well developed, in no acute distress HEAD: EYES: sclera non-icteric EARS: NOSE: THROAT: NECK/THYROID: no cervical lymphade nopathy, neck supple HEART: S1, S2 normal CHEST: LUNGS: clear to auscultatio n bilaterally ABDOMEN: normal bowel sounds, no guarding or rigidity, no guarding or rigidity, no masses palpable, soft, nontender, nondistended NEUROLOGIC: alert and oriented SKIN: nonjaundiced, no spi katiuska angiomata EXTREMITIES: no edema PERIPHERAL PULSES: BACK: BREASTS: MUSCULOSKELETAL: MALE GENITOURINARY: LYMPH NODES: RECTAL EXAM: FEMALE GENITOURINARY: ORAL CAVITY: mucosa moist
--- OUTSIDE RECORDS SUMMARY | 2024-09-21 10:18 | XMS_ITS ---
Author Organization [facility] Address [address] [place] [address] Care Team Providers Care Phlebotomy Lab Assistant Name Role Phone Odell Quinteros MD Primary Care Provider Dennis Segovia [phone] REASON FOR VISIT dai's,gerd,screening,fam hx colon cancer Problems Problem Type SNOMED Code ICD Code Onset Dates Problem Status W/U Status Risk Notes Problem Personal history of colonic polyps (Z86.010) Active confirmed Problem Diverticular disease of colon (891317947) Diverticulosis of large intestine without perforation or abscess without bleeding (K57.30) Active confirmed Problem Gastric polyp (12987158) Gastric polyp (K31.7) Active confirmed Encounters Encounter Location Date Provider Diagnosis [facility] [address] [place], [place] [id number] 10/16/2023 Dennis Dye Encounter for screen ing [...] * LEFTY RODRIGUEZ FDOB:1955 (69 yo M)Acc No.[id number]:10/16/2023 EGD and COL/MAC Patient:?LEFTY RODRIGUEZ Provider:?Dennis Dye MD :1955???Age:68 Y???Sex:Male Kun e:10/16/2023 Address:[address] [place], [place] [id number] Pcp:Odell Quinteros MD Subjective: * Chief Complaints: * ???1. Dai's,gerd,screeni ng,fam hx colon cancer. * Medical History:? Objective: * Vitals:? Assessment: * Assessment: 1.?Encounter for screening c olonoscopy - Z12.11 (Primary)???2.?Personal history of colonic polyps - Z86.010???3.?Diverticulosis of large intestine without perforation or abscess without bleeding - K57.30???4.?Other hemorrhoids - K64.8 ??5.?Other specified disease of esophagus - K22.89???6.?Hiatal hernia - K44.9???7.?Gastric polyp - K31.7???8.?Gastroesophageal reflux disease without esophagitis - K21.9??? Plan: * Treatment: * Procedure Codes:?G0105 COLOR EC CANCR SCR; COLNSCPY HI RISK, 0529F INTRVL 3+YRS PTS CLNSCP DOCD, 0528F RCMND FLW-UP 10 YRS DOCD, Modifiers: 1P , 95104 UPPER GI ENDOSCOPY, BIOPSY * * The named appointment provid er may or may not be the originator of this progress note, and it is not deemed complete until electronically signed by the appointment provider. Sign off status: Pending * Provider:?Dennis Dye MD Date:? 024 Generated for Vaibhav christina/Kiran/Kris on:?09/21/2024 10:18 AM EDT
--- OUTSIDE RECORDS SUMMARY | 2024-09-21 10:18 | XMS_ITS | Patient Health Record ---
Author Organization [facility] Address [address] [place] [address] Care Team Providers Care Student Activities Director Name Role Phone Odell Quinteros MD Primary Care Provider Dennis Segovia Unavailable [phone] Allergies No Known Allergies Results Component Value Reference Range Notes Pathology (Not yet reviewed by provider) Interpretation: Performing Lab:[facility], [address] [place] [id number] Notes/Report: Name: Oscar Rodriguez Age/Sex: 68/M : 1955 Unit#: [id number] Attend Dr: Dennis Dye Re10/16/23 Status : [facility] Location: [facility] Disch: SPEC : [id number] RECD : 10/16/23 STATUS: LUDWIN HUSSEIN NUM: [id number] NICOLAS: 10/16/23 [facility] DR: Dennis Dye ENTERED: 10/16/23- 31 SP TYPE: Surgical OTHR DR: Odell Quinteros MD ORDERED: HE Stain/3, Gross Micro L4, Special st. 2, AB/PAS Diagnosis Gastroesophageal flaco ction at 39 cm, biopsy: Squamocolumnar junctional mucosa with mild chronic inflammation ; negative for intestinal metaplasia and dysplasia. Clinical History Pre-Op Dx: GERD, Bar rett's, screening Post-Op Dx: Luong' s, hiatal hernia, diverticulosis and hemorrhoids Microscopic Description A. Microscopic secti ons examined. No metaplastic changes are seen, supported by AB/PAS stains (A). Material Received EG junction bx at 39 , hx of Luong's Gross Description Received in formalin are 3 jose 2-3 mm soft tissue fragments, totally submitted in A1. (RJD) Special stains order ed and performed: AB/PAS on A. Copies To: Odell Quinteros MD [address] [place] [address] [address], [address] [place] [address] Dennis Dye [address] [place] [address] [id number] [place] [address] Signed (si gnature on file) Ingris Chaparro MD 10/20/23 0937 END OF REPORT Reason For Referral No Information Medications Medication SIG (Take, Route, Frequency, Duration) Notes Start Date End Date Status Omeprazole 20 MG 1 capsule Orally Once a day 07/18 Active Pravastatin Sodium 20 MG 1 tablet Orally Once a day 07/18/2014 Active Immunizations Vaccine Route Administration Date Status Comme nts Influenza Unknown 03/24/2023 Administered Influenza Unknown 05/18/2018 Refused Problems Problem Type SNOMED Code ICD Code Onset Dates Problem Status W/U Status Risk Notes Problem 448709255 Encounter for screening for malignant neoplasm of colon (Z12.11) Active confirmed Problem History of adenomatous polyp of colon (501349549) History of adenomatous polyp of colon (Z86.010) Active confirmed Problem Personal history of colonic polyps (Z86.010) Active confirmed Problem Diverticulosis o f large intestine without perforation or abscess without bleeding (K57.30) Active confirmed Problem Screening for malignant neoplasm of rectum (419516988) Encounter for screening for malignant neoplasm of rectum (Z12.12) Active confirmed Problem Dysphagia (74210326) Dysphagia (R13.10) Active confirmed Problem 024946379 Gastroesophageal reflux disease without esophagitis (K21.9) Active confirmed Problem 275551175 Barretts esophag us without dysplasia (K22.70) Active confirmed Problem 298488125 Family history o f colon cancer (Z80.0) Active confirmed Problem Gastric polyp (52169545) Gastric polyp (K31.7) Active confirmed Encounters Encounter Location Date Provider Diagnosis [facility] Outpatient [address] [place] [id number] 10/16/2023 Dennis Dye Encounter for screen ing [...] esophagitis (ICD-10 - K21.9) Plan Of Treatment Pending Test Test Name Order Date Pathology 10/16/2023 Future Test Test Name Order Date UPPER GI ENDOSCOPY 07/18/2014 UPPER GI ENDOSCOPY 05/18/2018 COLONOSCOPY 05/18/2018 UPPER GI ENDOSCOPY 09/11/2023 COLONOSCOPY 09/11/2023 Insurance Providers Payer Name Payer Address Payer Phone Subscriber Number Group Number Insured Name Patient Relationship to Insured Coverage Start Date Coverage End Date MEDICARE OF [place] [address] [place] [address] [id number] LEFTY RODRIGUEZ Self - patient is the insured MED[employer] ATTN CLAIMS [address] [place] [address] [phone] [id number] LEFTY RODRIGUEZ Self - patient is the insured Medical (General) History Medical History History ICD Code Colonoscopies-- 2005, Hyperplastic polyp ; 02/2011 negative for polyps Luong's esophagus--EGD in 2005,02/2011, and 09/2014-no dysplasia-small area; moderate-sized HH 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 I saw him in the ER that day and he underwent upper endoscopy with removal of a large steak bolus. There is no evidence of any esophageal stricture nor ring. I suspected his obstruction was simply due to a large piece of food, plus he does not make much in the way of saliva due to his previous head and neck cancer treatments Surgical History Surgery Date(Month/Year) Neck cancer as above 2007 Skull surgery due to trauma 1960 Eye surgery as a child
== END 2024-09-21 10:15 | disposition home or self-care (01) ==
LOC: HO.HMCHD 09:03
PROVIDERS: PCP Internal Medicine; Visit Provider Internal Medicine
DX: E78.00 Pure hypercholesterolemia, unspecified (principal); C09.9 Malignant neoplasm of tonsil, unspecified; Z00.00 Encounter for general adult medical examination without abnormal findings

== ENCOUNTER → 2024-09-21 09:02 | Outpatient (BNVA) | payer MEDICARE, SELFPAY | PROVIDERS: PCP Internal Medicine; Visit Provider Internal Medicine | DX: Z13.89 Encounter for screening for other disorder (principal) ==

== ENCOUNTER 2024-09-21 09:54 | Outpatient (REF) | payer MEDICARE, SELFPAY ==
[2024-09-21 11:58] LABS: Hematocrit 47.4 % (42.0-52.0); Hemoglobin 15.3 g/dl (14.0-18.0); Mean Corpuscular HGB Conc 32.3 g/dl (31.0-36.0); Mean Corpuscular Hemoglobin 30.3 pg (27.0-33.0); Mean Corpuscular Volume 93.9 fL (80.0-98.0); Mean Platelet Volume 11.5 fL (9.4-12.4); Platelet Count 318 X10*3/uL (160-400); Red Blood Count 5.05 X10*6/uL (4.60-5.80); Red Cell Distribution Width 12.4 % (11.0-16.0)
[2024-09-21 11:59] LABS: Appearance Urine Clear; Color Urine Yellow; Glucose Urine UA Negative (Negative); Leukocyte Esterase Urine Negative (Negative); Nitrite Urine Negative (Negative); PH 7.5 (5.0-9.0); Specific Gravity - Urine 1.015 (1.005-1.025); Urine Blood Negative (Negative); Urine Ketones Negative (Negative); Urine Protein Negative (Neg-Trace)
[2024-09-21 15:55] LABS: Alanine Aminotransferase 16 U/L (0-40); Albumin Level 4.2 g/dL (3.5-5.0); Alkaline Phosphatase 79 U/L (39-117); Anion Gap 9 (12-20); Aspartate Amino Transferase 24 U/L (5-37); Bilirubin Direct 0.2 mg/dL (0.0-0.5); Bilirubin Total 0.6 mg/dL (0.0-1.0); Blood Urea Nitrogen 9 mg/dL (9-16); Calcium 8.7 mg/dL (8.4-10.2); Carbon Dioxide 29 mmol/L (22-29); Chloride 108 mmol/L (96-108); Cholesterol 172 mg/dL (<200); Estimated Glomerular Filt Rate > 60; Glucose Random 99 mg/dL (60-115); HDL Cholesterol 43 mg/dL (>40); LDL Cholesterol Calculated 117 mg/dL (<100); Potassium 4.2 mmol/L (3.3-5.1); Sodium 142 mmol/L (135-145); Thyroid Stimulating Hormone 4.83 uIU/mL (0.32-4.0); Total Protein 6.7 g/dL (6.5-8.0); Triglycerides 63 mg/dL (<150)
== END 2024-09-21 09:55 | disposition home or self-care (01) ==
LOC: HO.10HDL 09:54
PROVIDERS: Visit Provider Internal Medicine
DX: E78.00 Pure hypercholesterolemia, unspecified (principal); Z85.89 Personal history of malignant neoplasm of other organs and systems; Z92.21 Personal history of antineoplastic chemotherapy; Z92.3 Personal history of irradiation
CPT/HCPCS: 36415; 80048; 80061; 80076; 81003; 84443; 85027; 96127; 99202

== ENCOUNTER 2024-11-12 07:50 | Outpatient (REF) | payer MEDICARE, SELFPAY ==
[2024-11-12 09:27] LABS: Thyroid Stimulating Hormone 2.74 uIU/mL (0.32-4.0)
== END 2024-11-12 07:51 | disposition home or self-care (01) ==
LOC: HO.LAB 07:50
PROVIDERS: PCP Internal Medicine; Visit Provider Internal Medicine
DX: E03.9 Hypothyroidism, unspecified (principal)
CPT/HCPCS: 36415; 84443

== ENCOUNTER 2025-03-22 12:54 | Outpatient (REF) | payer MEDICARE, SELFPAY ==
[2025-03-22 14:53] LABS: Microalbum/Creatinine Ratio Ur 5.7 ug/mg cr (<30)
[2025-03-22 15:24] LABS: Hemoglobin A1C 152.4269 umol/L
--- OUTSIDE RECORDS SUMMARY | 2025-03-23 01:23 | XMS_ITS ---
Author Organization Unknown ENCOUNTERS Encounter Performer Location Date Diagnosis Diagnosis Status Pre Admit [address] [id number] [address] [address] [id number] [facility] Emergency [facility] [address] [place] [address] [id number] PAT Outpatient [address] [place] [address] [id number] [place] Pre Admit [facility] [address] [place] [address] [id number] *Note: Encounters from your own facility or health system may be excluded. Allergies, Adverse Reactions, Alerts Allergen Type Severity Identification Date Medications Name Date Quantity Days Supplied GPI Number
== END 2025-03-22 12:55 | disposition home or self-care (01) ==
LOC: HO.LAB 12:54
PROVIDERS: PCP Student in an Organized Health Care Education/Training Program; Visit Provider Student in an Organized Health Care Education/Training Program
DX: K21.9 Gastro-esophageal reflux disease without esophagitis (principal); Z13.1 Encounter for screening for diabetes mellitus; E78.00 Pure hypercholesterolemia, unspecified; E03.8 Other specified hypothyroidism
CPT/HCPCS: 36415; 82043; 82570; 83036; 84443; 99212

== ENCOUNTER 2025-03-22 12:54 | Outpatient (AMB) | payer MEDICARE, SELFPAY ==
--- OUTSIDE RECORDS SUMMARY | 2023-10-16 05:10 | XMS_ITS ---
Author Organization [facility] Address [address] [place] [address] Care Team Providers Care Ostomy Rn Name Role Phone Neli (RETIRED) Odell MURILLO Primary Care Provide r Dennis Muniz [phone] REASON FOR VISIT dai's,gerd,screening,fam hx colon cancer Problems Problem Type SNOMED Code ICD Code Onset Dates Problem Status W/U Status Risk Notes Problem History of polyp of colon (situation) (775258785) Personal history of colonic polyps (Z86.010) Active confirmed Problem Diverticular disease of colon (007580936) Diverticulosis of large intestine without perforation or abscess without bleeding (K57.30) Active confirmed Problem Gastric polyp (41227497) Gastric polyp (K31.7) Active confirmed Encounters Encounter Location Date Provider Diagnosis [facility] Outpatient [address] [place] [id number] 10/16/2023 Dennis Dye Encounter for screen ing colonoscopy Z12.11 ; Personal history of colonic polyps Z86.010 ; Diverticulosis of large intestine without perforation or abscess without bleeding K57.30 ; Other hemorrhoids K64.8 ; Other specified disease of esophagus K22.89 ; Hiatal hernia K44.9 ; Gastric polyp K31.7 and Gastroesophageal reflux disease without esophagitis K21.9 Assessments Encounter Date Diagnosis (ICD Code) Assessment Notes Treatment Notes Treatment Clinical Notes Section Notes 10/16/2023 Encounter for screening colonoscopy (ICD-10 - Z12.11) 10/16/2023 Personal history of colonic polyps (ICD-10 - Z86.010) 10/16/2023 Diverticulosis of large intestine without perforation or abscess without bleeding (ICD-10 - K57.30) 10/16/2023 Other hemorrhoids (ICD-10 - K64.8) 10/16/2023 Other specified disease of esophagus (ICD-10 - K22.89) 10/16/2023 Hiatal hernia (ICD-10 - K44.9) 10/16/2023 Gastric polyp (ICD-10 - K31.7) 10/16/2023 Gastroesophageal reflux disease without esophagitis (ICD-10 - K21.9) Plan Of Treatment No Information Progress Notes * LEFTY RODRIGUEZ FDOB:1955 (69 yo M)Acc No.[id number]:10/16/2023 EGD and COL/MAC Patient: LEFTY COLEMAN Provider: Shade Dye MD :1955 A ge:68 Y S ex:Male Date:10/16/2023 Address:[address] [place], [place] [id number] Pcp:Odell Quinteros (RETIRED )MD Subjective: * Chief Complaints: * B arrett's,gerd,screening,fam hx colon cancer Assessment: * Assessment: 1. E ncounter for screening colonoscopy - Z12.11 (Primary) 2 . P ersonal history of colonic polyps - Z86.010 3 . D iverticulosis of large intestine without perforation or abscess without bleeding - K57.30 4 . O ther hemorrhoids - K64.8 5. O ther specified disease of esophagus - K22.89 6 . H iatal hernia - K44.9 7 . G astric polyp - K31.7 8 . G astroesophageal reflux disease without esophagitis - K21.9 Plan: * Procedure Codes: G 0105 COLOREC CANCR SCR; COLNSCPY HI [id number] INTRVL 3+YRS PTS CLNSCP [id number] RCMND FLW-UP 10 YRS DOCD, Modifiers: 1P 41717 UPPER GI ENDOSCOPY, BIOPSY Billing Information: * Procedure Codes: G0105 COLOREC CANCR SCR; COLNSCPY HI RISK. 0529F INTRVL 3+YRS PTS CLNSCP DOCD. 0528F RCMND FLW-UP 10 YRS DOCD. Modifiers: 1P 38468 UPPER GI ENDOSCOPY, BIOPSY. * The named appointment provid er may or may not be the originator of this progress note, and it is not deemed complete until electronically signed by the appointment provider. Sign off status: Pending * Provider: Shade Dye MD Date: 0 10/16/2023 Generated for Vaibhav christina/Kiran/Justaitting on: 1 05/23/2024 12:44 AM EST
--- NOTE | 2025-03-22 12:59 | MHC.PC.OV ---
Vital Signs 03/22/25 13:00 Height 5 ft 11 in Weight 170 lb BMI 23.7 BP 124/78 Blood Pressure Location Rt brachial Position Sitting Pulse 78 Pulse Source Pulse Oximeter Temp 98.4 F Temp Source Temporal Artery Scan Pulse Oximetry (%) 98 Oxygen Delivery Method Room Air Intake Visit Reasons: 6 month f/u Cloth Dyer Required: No Accompanied by: Self / Same As Patient Allergies No Known Allergies Allergy (Mild, Verified 03/22/25 13:01) NOT APPLICABLE Medication List - Last Reconciled 03/22/25 by Fausto Gimenez MD levothyroxine (Synthroid) 25 mcg PO DAILY omeprazole 20 mg PO DAILY pravastatin 20 mg PO DAILY Tobacco use date assessed: 03/22/25 Fall risk assessment: No Falls in past year Last assessed Fall Risk: 03/22/25 Dental Screening Dental Screen Date: 03/22/25 Did you have a dental visit in the last 12 months?: Yes Did you have a dental problem in the last 6 months where you did not have access to dental care?: No HPI HPI Comments History of Present Illness Details History of Present Illness The patient is a 69-year-old male presenting for a follow-up visit for management of chronic conditions. The patient has a history of hypothyroidism, which was noted to be under-functioning during his last visit in September. His TSH level improved from 4.83 to 2.74 after starting levothyroxine 25 mcg. He has been taking the medication as prescribed but has run out of refills as of today. He also has a history of high cholesterol and is currently taking pravastatin 40 mg. His dose was previously increased from 20 mg to 40 mg due to high levels of bad cholesterol. The patient also takes omeprazole 20 mg daily and reports feeling well on it. Past medical history is notable for cancer in 2007, which he states was located in the head/neck area and sometimes causes issues with saliva production. He has never smoked and quit drinking alcohol 25 years ago after a period of heavy use. Medical History: - Hypothyroidism, diagnosed in September. - Hypercholesterolemia - Gastroesophageal reflux disease - History of cancer in 2007, head and neck area - History of alcohol abuse, abstinent for 25 years Medications: - Levothyroxine 25 mcg for hypothyroidism - Pravastatin 40 mg for high cholesterol - Omeprazole 20 mg once daily Diagnostic Results: - Labs: Previous TSH level was 4.83, which improved to 2.74 after initiating thyroid medication. Social History - Employment: Retired, previously a golf pro. - Tobacco Use: Never smoked. - Alcohol Use: Reports a history of heavy alcohol use but has been abstinent for 25 years. [facility] Medical History (Updated 03/22/25 @ 13:21 by Fausto Gimenez MD) GERD without esophagitis Screening for diabetes mellitus Hypothyroidism Squamous cell carcinoma of tonsil Barretts esophagus High cholesterol GERD (gastroesophageal reflux disease) Surgical History Hx of eye surgery Hx of tonsillectomy History of esophagogastroduodenoscopy (EGD) H/O colonoscopy (~10/16/23) Hx of brain surgery Family History (Updated 03/22/25 @ 13:09 by Elvia Lowe MA) Mother No problems noted. Father No problems noted. Social History Household Members: Spouse Housing: House Patient Tobacco Use Status: Never used Tobacco e-Cigarette/Vaping Use: Never Used service: No Current occupational status: employed and retired Current occupational exposures/hazards: No Cognitive needs: No Hearing needs: No Vision needs: Yes (rx glasses) Questionnaire PHQ-9 Over the last 2 weeks, how often have you been bothered by any of the following problems? 1. Little interest or pleasure in doing things: not at all 2. Feeling down, depressed, or hopeless: not at all 3. Trouble falling or staying asleep, or sleeping too much: not at all 4. Feeling tired or having little energy: not at all 5. Poor appetite or overeating: not at all 6. Feeling bad about yourself - or that you are a failure or have let yourself or your family down: not at all 7. Trouble concentrating on things, such as reading the newspaper or watching television: not at all 8. Moving or speaking so slowly that other people could have noticed. Or the opposite - being so fidgety or restless that you have been moving around a lot more than usual: not at all 9. Thoughts that you would be better off or of hurting yourself in some way: not at all Total score: 0 Depression Screening Interpretation: Negative Depression Screening Done: Yes Source: Developed by Drs. Dennis Jonas, Lisette Jones, Ion Barroso and colleagues, with an educational savi from [employer]. Thrive Questionnaire Date Thrive assessed: 03/22/25 I am a: Patient Within the past 12 months, did the food you bought not last and you didn't have the money to get more?: Never true Within the past 12 months, did you worry whether your food would run out before you got money to buy more?: Never true Do you have trouble paying for medicines?: No Do you have trouble getting transportation to medical appointments?: No Do you have trouble paying your heating and electricity bill?: No Do you have trouble taking care of your child, family member or friend?: No Do you have trouble with day-to-day activities such as bathing, preparing meals, shopping, managing finances, etc.?: No Are you currently unemployed and looking for a job?: No Are you interested in more education?: No THRIVE Score: 0 AUDIT C Alcohol Use Questionnaire (AUDIT-C) 1. How often do you have a drink containing alcohol?: Never 3. How often do you have six or more drinks on one occasion?: Never Total Score: 0 DAYLIN-7 AMB Questionnaire DAYLIN-7 Date DAYLIN - 7 assessed: 03/22/25 Feeling nervous, anxious, or on edge: 0 = Not at all Not being able to stop or control worryin = Not at all Worrying too much about different things: 0 = Not at all Trouble relaxin = Not at all Being so restless that it is hard to sit still: 0 = Not at all Becoming easily annoyed or irritable: 0 = Not at all Feeling afraid as if something awful might happen: 0 = Not at all Total DAYLIN-7 score (0-4 normal; 5-9 mild; 10-14 moderate; 15-21 severe): 0 Source: Developed by Drs. Dennis Jonas, Lisette Jones, Ion Barroso and colleagues, with an educational savi from [employer]. Review of Systems Narrative Review of Systems - General: Reports feeling very well. - Constitutional: Denies feeling hot, cold, or having sweaty hands. - HEENT: Reports good vision. Reports occasional problems with saliva production secondary to a history of cancer. - Cardiovascular: Denies chest pain. - Respiratory: Denies shortness of breath. - Gastrointestinal: Denies nausea or vomiting. Reports normal urination and defecation. All systems reviewed & are unremarkable except as reviewed in HPI and above Physical exam (Primary Care) Vital Signs: Last Vital Signs Temp 98.4 F 03/22/25 13:00 Pulse 78 03/22/25 13:00 BP 124/78 03/22/25 13:00 Pulse Ox 98 03/22/25 13:00 Oxygen Delivery Method Room Air 03/22/25 13:00 BMI result Body Mass Index 23.7 Tobacco/Smoking Status: Tobacco use Status Tobacco use date assessed 03/22/25 03/22/25 13:03 Patient Tobacco Use Status Never used Tobacco 03/22/25 13:03 e-Cigarette/Vaping Use Never Used 03/22/25 13:03 PHQ-9: PHQ-9 Score PHQ-9: Total score 0 03/22/25 13:09 Depression Screening Interpretation: Negative Thrive Assessment: Date of Thrive Assessment Date Thrive assessed 03/22/25 03/22/25 13:03 Narrative Physical Exam General: Alert and oriented, Well nourished, No acute distress. Eye: Pupils are equal, round and reactive to light, Intact accommodation, Extraocular movements are intact, Normal conjunctiva, Vision unchanged. HENT: Normocephalic, Atraumatic, Tympanic membranes are clear, Normal hearing, Oral mucosa is moist, No pharyngeal erythema, Ear canals patent. Respiratory: Lungs CTA bilaterally, No wheeze, Respirations are non-labored. Cardiovascular: Regular rate, Regular rhythm, S1 auscultated, S2 auscultated, No murmur, Good pulses equal in all extremities, Normal peripheral perfusion, No edema. Gastrointestinal: Soft, Non-tender, Non-distended, Normal bowel sounds, No organomegaly. Musculoskeletal: Normal range of motion, Normal strength, No tenderness, No swelling, No deformity, Normal gait. Integumentary: Warm, Dry, [place], Intact. Neurologic: Alert, Oriented, Normal sensory, Normal motor function, No focal defects, Cranial Nerves II-XII are grossly intact, Normal deep tendon reflexes. Psychiatric: Cooperative, Appropriate mood & affect, Normal judgment. Coding Level of Care Code Est Pt Level 4 (53833) Complex EM visit Add On G2211 Diagnoses Other specified hypothyroidism E03.8 Hypothyroidism type: other High cholesterol E78.00 GERD without esophagitis K21.9 Assessment & Plan Assessment & Plan (1) Hypothyroidism: Comment: - The patient's condition is managed on levothyroxine 25 mcg, with TSH improving from 4.83 to 2.74. - He has run out of medication. - A refill will be sent to the pharmacy, and he is advised to continue taking it daily in the morning. - A new TSH lab order will be placed to monitor levels and adjust the dose if needed. Code(s): E03.9 - Hypothyroidism, unspecified Category: Medical Qualifiers: Hypothyroidism type: other Qualified Code(s): E03.8 - Other specified hypothyroidism (2) High cholesterol: Comment: - The patient is managed on pravastatin 40 mg, which was increased from 20 mg due to elevated bad cholesterol. - He will continue the current dosage. Code(s): E78.00 - Pure hypercholesterolemia, unspecified Category: Medical (3) GERD without esophagitis: Comment: - He is stable on omeprazole 20 mg daily and will continue this medication. Code(s): K21.9 - Gastro-esophageal reflux disease without esophagitis Category: Medical Plan: Health Maintenance - Lab work ordered for TSH, blood sugar, and urinalysis. - Patient advised to follow up in six months for a physical exam. - The patient is a non-smoker. - Patient has a history of alcohol abuse but has been abstinent for 25 years. Patient was informed and verbally consented to the use of an ambient scribe for clinic note documentation during this visit. Vital signs reviewed. Comprehensive history, review of systems, and physical exam completed. Medications, allergies, and problem list reviewed and updated. Counseling provided on nutrition, regular exercise, sleep hygiene, and moderation of alcohol use. Discussed age-appropriate screenings (mammogram, colonoscopy, Pap, bone density) and immunizations (flu, COVID, shingles, Tdap). Screened for depression, fall risk, and home safety; no current concerns. Discussed stress management, dental and vision care, and importance of ongoing preventive follow-up. Routine labs ordered for metabolic and lipid screening. Patient educated on healthy lifestyle and agrees with the plan. Plan I discussed the patient's hypothyroidism, noting that his TSH level improved from 4.83 to 2.74 with medication. I informed him that I will send a refill for his levothyroxine 25 mcg to the pharmacy and that I am ordering a new TSH lab test to ensure his levels are stable. I emphasized that he should continue taking the thyroid medication every morning. We also reviewed his chronic conditions, including high cholesterol and reflux, and he will continue his current medications. I instructed him to go for blood work and a urinalysis and to schedule a follow-up appointment for a physical in six months. Orders: Orders TSH reflex Free T4 Today E03.9 - Hypothyroidism, unspecified Hemoglobin A1c Today Z13.1 - Encounter for screening for diabetes mellitus Microalbumin, Random (w Creat) Today Z13.1 - Encounter for screening for diabetes mellitus Medications: Refilled levothyroxine (Synthroid) 25 mcg PO DAILY 90 tabs 0RF Patient Instructions: - A [facility] for your [facility]othyroxine 25 mcg [facility] Please continue to take it once every morning. - Continue taking your pravastatin 40 mg for high cholesterol. - Continue taking your omeprazole 20 mg once a day. - Please go to the lab to have your blood drawn for a thyroid (TSH) and sugar check, and to provide a urine sample. - The lab is located next door and closes after 12:00 PM. - Please go to the front end driver to schedule a follow-up appointment for a physical in six months.
[2025-03-22 13:00] VITALS: BP 124/78; PULSE 78; TEMP 36.9; O2SAT 98; BMI 23.7
--- OUTSIDE RECORDS SUMMARY | 2025-03-23 00:44 | XMS_ITS | Patient Health Record ---
Author Organization [facility] Address [address] [place] [address] Care Team Providers Care Emergency Room Doctor Name Role Phone Neli (RETIRED) Odell MURILLO Primary Care Provide r Unavailable Dennis Dye Unavailable [phone] Allergies No Known Allergies Reason For Referral No Information Medications Medication SIG (Take, Route, Frequency, Duration) Notes Start Date End Date Status Omeprazole 20 MG Capsule Delayed Release 1 capsule Orally Once a day 07/18/2014 Active Pravastatin Sodium 20 MG Tablet 1 tablet Orally Once a day 07/18/2014 Active Immunizations Vaccine Route Administration Date Status Comme nts Influenza Unknown 05/18/2018 Refused Influenza Unknown 03/24/2023 Administered Social History Social History Additional Details Category Social Info Options Details Miscellaneous: Marital status: 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 Section Notes: Nonsmoker; heavy EtOH until 1999--abstinent since Nonsmoker; heavy EtOH until 1999--abstinent since Nonsmoker; heavy EtOH until 1999--abstinent since Nonsmoker; heavy EtOH until 1999--abstinent since Problems Problem Type SNOMED Code ICD Code Onset Dates Problem Status W/U Status Risk Notes Problem Screening for malignant neoplasm of colon (130892059) Encounter for screening for malignant neoplasm of colon (Z12.11) Active confirmed Problem History of adenomatous polyp of colon (136192808) History of adenomatous polyp of colon (Z86.010) Active confirmed Problem History of polyp of colon (situation) (099447877) Personal history of colonic polyps (Z86.010) Active confirmed Problem Diverticular disease of colon (284820616) Diverticulosis of large intestine without perforation or abscess without bleeding (K57.30) Active confirmed Problem Screening for malignant neoplasm of rectum (775251985) Encounter for screening for malignant neoplasm of rectum (Z12.12) Active confirmed Problem Dysphagia (57614849) Dysphagia (R13.10) Active confirmed Problem Gastroesophageal reflux disease without esophagitis (751201790) Gastroesophageal reflux disease without esophagitis (K21.9) Active confirmed Problem Luong's esophagus (458267408) Barretts esophagus without dysplasia (K22.70) Active confirmed Problem Family History of Cancer of Colon (Situation) (254417673) Family history of colon cancer (Z80.0) Active confirmed Problem Gastric polyp (29173543) Gastric polyp (K31.7) Active confirmed Plan Of Treatment Pending Test Test Name Order Date Pathology 10/16/2023 Future Test Test Name Order Date UPPER GI ENDOSCOPY 07/18/2014 UPPER GI ENDOSCOPY 05/18/2018 COLONOSCOPY 05/18/2018 UPPER GI ENDOSCOPY 09/11/2023 COLONOSCOPY 09/11/2023 Insurance Providers Payer Name Payer Address Payer Phone Subscriber Number Group Number Insured Name Patient Relationship to Insured Coverage Start Date Coverage End Date MEDICARE OF [place] [address] 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
== END 2025-03-22 13:19 | disposition home or self-care (01) ==
LOC: HO.HMCHD 12:55
PROVIDERS: PCP Internal Medicine; Visit Provider Student in an Organized Health Care Education/Training Program
DX: E03.8 Other specified hypothyroidism (principal); E78.00 Pure hypercholesterolemia, unspecified; K21.9 Gastro-esophageal reflux disease without esophagitis